=== PATIENT | female | born 1955 | race Caucasian/White ===

== ENCOUNTER 2019-04-04 05:56 | Inpatient (IN) | payer OTHER ==
[2019-03-18 13:28] LABS: HEMATOCRIT 40.6 % (37.0-47.0); HEMOGLOBIN 13.4 gm/dL (12.0-15.0); MCH 29.9 pg (26.0-34.0); MCV 90.9 fL (80.0-100.0); RBC 4.46 mil/uL (4.20-5.00); URINE BILIRUBIN NEGATIVE (Negative); URINE BLOOD NEGATIVE (Negative); URINE CLARITY CLEAR; URINE COLOR YELLOW; URINE GLUCOSE-RANDOM* NEGATIVE (Negative); URINE KETONES NEGATIVE (Negative); URINE LEUKOCYTES-REFLEX TRACE (Negative); URINE NITRITE-REFLEX NEGATIVE (Negative); URINE PROTEIN (DIPSTICK) NEGATIVE (Negative); URINE SPECIFIC GRAVITY <= 1.005 (1.005-1.035); URINE UROBILINOGEN 0.2 E.U./dl (0.2-1.0); WBC 4.4 thou/uL (4.0-11.0)
[2019-03-18 13:39] LABS: ALBUMIN 4.1 g/dL (3.4-5.0); CALCIUM 9.6 mg/dL (8.5-10.1); CREATININE 0.7 mg/dL (0.6-1.0); POTASSIUM 4.4 mmol/L (3.5-5.1)
[2019-03-18 13:44] LABS: PROTIME 10.7 Seconds (9.3-11.4)
--- NOTE | 2019-03-27 12:42 | EKG ---
[facility] [place] [address] ELECTROCARDIOGRAM REPORT Name: ESPERANZA HADDAD Room #: PRE IN ..#: [id number] Admission: Attend Phys: Juan F Duarte MD Discharge: Date of : 59 Report #: [id number] THIS REPORT FOR: cc: Ruby Her MD, Carrie W. MD Lundgren,Lux Spears MD [facility] ~ THIS REPORT FOR: //name// [facility] Test Date: 2019-03-18 Test Time: 13:20:23 Pat Name: ESPERANZA HADDAD Department: Room: Gender: [employer] Feeder: luiza : 1955 Requested By: Juan F Duarte Order Number: [id number] MD: Lux Domínguez Measurements Intervals [place] Rate: 79 P: 54 [place]: 153 QRS: 3 QRSD: 83 T: 10 QT: 370 QTc: 425 Interpretive Statements Sinus rhythm Normal tracing No previous ECG available for comparison Electronically Signed On 03-18-2019 17:44:22 ENVIRONMENTAL ANALYST by Lux Domínguez [email or web address] <ELECTRONICALLY SIGNED> By: Lux Domínguez MD, [facility] 03/18/19 1744 1320 1320 Lux Domínguez MD, FAC /EPI
[2019-04-04] VITALS (9 sets, daily range): BP systolic 101–155; BP diastolic 60–90
[~2019-04-04] VITALS: Ht 157.5 cm; Wt 66.7 kg
--- NOTE | ~2019-04-04 | D ---
[facility] [place] [address] DISCHARGE SUMMARY Name: ESPERANZA HADDAD Room #: 442-P [facility] IN M.R.#: [id number] Admission: 04/04/19 Attend Phys: Juan F Duarte MD Discharge: 04/06/19 Date of : 59 Report #: [id number] THIS REPORT FOR: cc: Ruby Her MD, Carrie W. MD Clymer, David J. MD ~ THIS REPORT FOR: //name// CC: Ruby Duarte FINAL DIAGNOSIS: End-stage degenerative arthritis, right hip. OPERATION PROCEDURES: Right total hip arthroplasty. HISTORY OF PRESENT ILLNESS: This slender, healthy and fit, 63-year-old female has rather severe progressive right hip pain. Clinical exam and x-rays confirm severe degenerative arthritis. She has tried conservative measures without clear benefit. She has elected to go ahead with right total hip arthroplasty. HOSPITAL COURSE: The patient was admitted and taken to the operating room on 04/04/2019. She underwent right total hip arthroplasty, which she tolerated nicely. Postoperatively, her course was largely unremarkable. She was able to resume a regular diet. She is able to tolerate oral pain medications and advanced with physical therapy. She seems to be safe and functionally independent and ready for discharge on 04/07/2019. DISCHARGE MEDICATIONS: Include Pravachol 40 mg daily, fish oil 1000 mg b.i.d., Xarelto 10 mg daily, hydrocodone 5-10 mg q.6 hours p.r.n. for pain. She will continue a gentle activity and ambulation at home with family assistance and plan is for some outpatient therapy in the week following her discharge. She is instructed to call the office if there are any problems or questions and will otherwise return for routine followup visit in 1 week and again in 2 weeks for suture removal. By: [id number] Juan F Duarte MD /nt
[~2019-04-04 05:56] MED LIST: ADVIL200 M3 PO; FISH OIL 1,0001 EAC9 PO; MAGNESIUM400 M1 PO; OSTEO BI-FLEX1 EAC1 PO; PRAVACHOL40 MG PO; TYLENOL EXTRA500 MG PO; VITAMIN D400 UNIT PO
--- NOTE | 2019-04-04 16:44 | O ---
[facility] [place] [address] OPERATIVE REPORT Name: ESPERANZA HADDAD Room #: 442-P ADM IN M.R.#: [id number] Admission: 04/04/19 Attend Phys: Juan F Duarte MD Discharge: Date of : 59 Report #: [id number] THIS REPORT FOR: cc: Ruby Her MD, Carrie W. MD Clymer, David J. MD ~ CC: Ruby Duarte DATE OF SERVICE: 04/04/2019 PREOPERATIVE DIAGNOSIS: Degenerative osteoarthritis, right hip. POSTOPERATIVE DIAGNOSIS: Degenerative osteoarthritis, right hip. PROCEDURE: Right total hip arthroplasty. SURGEON: Juan F Duarte MD INDICATIONS: This healthy, active, and fit 63-year-old female complains of progressive right hip pain. Clinical exam and x-rays confirm moderately severe degenerative arthritis. She has tried conservative measure without benefit. She has elected to go ahead with right total hip arthroplasty. DESCRIPTION OF PROCEDURE: The patient was taken to the operating room where she was placed under general anesthesia. Prophylactic intravenous antibiotics were administered. She was turned to the left lateral decubitus position. The right hip and thigh were meticulously prepped and draped. A slightly curving posterolateral skin incision was made. This was carried through subcutaneous tissues and abundant adipose tissue to expose the posterior aspect of the hip joint. The short external rotators were taken down and tagged with #1 FiberWire suture. The capsule was also tagged. The hip was dislocated. Moderately severe degenerative change on both the femoral head and acetabulum was noted. A femoral neck osteotomy was performed and the canal was opened with reamers and hand broaches. A Dom[employer]uez [employer] Nephew size 13 stem seemed to fit nicely. The trial stem was removed and attention directed to the acetabulum. The acetabulum was well exposed and then sequentially reamed using spherical reamers. This was advanced to a size 48 mm reamer. A Dom[employer]uez [employer]hew size 48 three-hole hemispherical StikTite shell was then inserted. This was placed in alignment with her true acetabulum, which positioned this in about 45 degrees off of vertical and about 20 degrees of anteversion. It seated nicely and appeared to be secure. In addition, two cancellous screws were placed through the apex holes engaging good periacetabular bone. A polyethylene liner was then inserted, placing the 20-degree elevated ruth at about the 10 o'clock posterior position. The liner seated nicely and appeared to be secure. The permanent femoral stem was then [address] [address] OPERATIVE REPORT Name: ESPERANZA HADDAD Meagan Room #: 442-P [facility] IN [facility].#: [id number] Admission: 04/04/19 Attend Phys: Juan F Duarte MD Discharge: Date of : 59 Report #: [id number] inserted using the Dominguez and Nephew size 13 Synergy porous femoral component. This was impacted into position. It seated nicely and appeared to be very secure. It was placed in about 15-20 degrees of anteversion. A reduction was trialed with several neck lengths and a +8 mm neck length seemed to fit most appropriately. A 32 mm Oxinium head with a +8 mm neck length was selected. This was impacted on the Lim taper. The hip was then reduced. Alignment, range of motion, stability and leg length were assessed and felt to be satisfactory. The wound was copiously irrigated. Good hemostasis was confirmed. The capsule and short external rotators were then repaired back to bone using #1 Tevdek sutures, passed through small drill holes in the greater trochanter, this added nicely to stability. A single Hemovac was left in the wound exiting through a separate stab incision. The fascia was then closed with multiple #1 Vicryl sutures. The abundant adipose tissues and subcutaneous tissues were closed with 0 Monocryl. The skin was closed with skin berlin. Sterile dressing was applied. The patient was awakened and returned to recovery room in good condition. <ELECTRONICALLY SIGNED> By: Juan F Duarte MD 04/04/19 1644 0930 0944 Juan F Duarte MD /nt
--- NOTE | 2019-04-04 21:32 | NUR ---
Up came to unit from recovery approx 1100. Pt a&ox4. Pain controlled with prn pain meds during shift. Dressing c/d/i. Hemovac drain in place. Up to the toilet SBA with gait-belt and walker. IVF and IV antibiotics infusing. Room air. CATY hose and SCDs in place. Family at bedside. Call light within reach. Report given to lani PARHAM.
[2019-04-05 04:46] LABS: HEMATOCRIT 31.6 % (37.0-47.0); HEMOGLOBIN 10.3 gm/dL (12.0-15.0); MCH 30.3 pg (26.0-34.0); MCHC 32.7 g/dL (28.0-37.0); MCV 92.7 fL (80.0-100.0); RBC 3.4 mil/uL (4.20-5.00); RDW 13.7 % (10.5-14.5)
--- NOTE | 2019-04-05 08:43 | NUR ---
ASSUMED PT CARE AT 1900. DRESSING DRY AND INTACT, ICE PACK APPLIED. PAIN BEING MANAGED WITH PAIN MEDS. UP TO THE TOILET FREQ TONIGHT, PT TOLERATED WELL EXCEPT SLIGHT LIGHTHEADNESS. ANTIBIOTICS AND FLUIDS INFUSING PER ORDER. HEMOVAC EMPTIED, OUTPUT DECREASING. SLEPT ALL SHIFT.
[2019-04-05 08:55] VITALS: BP 123/68
--- NOTE | 2019-04-05 17:04 | NUR ---
PT ADMITTED RELATED TO RT TOTAL HIP REPLACEMENT. CM REVIEWED CHART AND SPOKE WITH CARE TEAM. CM MET WITH PT AND SPOUSE AT BEDSIDE THIS DAY. PT RESIDES IN A HOUSE WITH 3 STEPS TO ENTER AND 12 STEPS INSIDE PT INDICATED SHE HAS A CANE FOR HOME USE BUT WILL NEED AD FWW. ONCE TO BE ISSUED BY THERAPY DAY OF DC. PT ANTICIPATES RETURNING HOME AND DOOING OP THERAPY IF INDICATED AFTER FOLLOW UP.
[2019-04-05 19:25] VITALS: BP 104/61
[2019-04-06 03:10] VITALS: BP 109/65
--- NOTE | 2019-04-06 03:15 | NUR ---
ASSESSED AT START OF SHIFT PT A&OX4. PAIN MEDS GIVEN FOR MANAGEMENT SEE EMAR. PT UP WITH ASSISTX1 TO THE TOILET. SCD'S AND TOBIN DRESSING INTACT. ICE PACK PLACE ON RT HIP. FALL PREC IN PLACE AND CALL LIGHT IN REACH WILL CONT WITH POC MELANIE EOS
[2019-04-06 06:13] LABS: HEMOGLOBIN 9.6 gm/dL (12.0-15.0); MCH 30.6 pg (26.0-34.0); MCHC 33.2 g/dL (28.0-37.0); MCV 92.3 fL (80.0-100.0); RBC 3.14 mil/uL (4.20-5.00); RDW 13.8 % (10.5-14.5); WBC 6.7 thou/uL (4.0-11.0)
--- NOTE | 2019-04-06 07:20 | NUR ---
PT RESTING IN BED WAS GIVEN PRN PAIN MED ON HIDE WASHER. PT STATES HOPES TO DISCHARGE TO HOME TODAY. [employer] DRESSING INTACT TO RIGHT HIP.
[2019-04-06 07:44] VITALS: BP 116/75
[2019-04-06 09:22] VITALS: BP 116/75
--- NOTE | 2019-04-06 11:43 | NUR ---
DISCHARGE PAPERS GONE OVER WITH PATIENT. SIGNED AND COPY IN CHART. IV ACSESS DCD. THERAPY BROUGHT NEW WALKER FOR PATIENT TO TAKE HOME. ALL BELONGINGS PACKED AND SENT WITH PATIENT. PT W/O PAIN OR RESP DISTRESS AT DISCHARGE.
== END 2019-04-06 11:47 | disposition home or self-care (01) | DRG 470 ==
LOC: 4S 05:56 → TBA 05:56 → 4S 11:09 → TBA 12:34 → 4S 04-06 11:47
PROVIDERS: ADMIT Orthopaedic Surgery
PROC: 0SR90JZ Replacement of Right Hip Joint with Synthetic Substitute, Open Approach (ICD-10-PCS; principal; 2019-04-04)
DX: M16.11 Unilateral primary osteoarthritis, right hip (principal); E78.5 Hyperlipidemia, unspecified; I10 Essential (primary) hypertension; K21.9 Gastro-esophageal reflux disease without esophagitis; Z79.899 Other long term (current) drug therapy; Z87.891 Personal history of nicotine dependence; Z79.891 Long term (current) use of opiate analgesic
CPT/HCPCS: 10102; 50010; 50101; 50382; 50414; 51412; 53000; 53368; 56521; 56525; 56530; 57095; 57103; 62110; 62900; 70005